=== PATIENT | male | born 1945 | race Caucasian/White ===

== ENCOUNTER 2016-09-01 07:18 | Day surgery (SDC) | payer MEDICARE, BC ==
--- NOTE | 2016-08-14 11:08 | Physician Courtesy Letter ---
DATE: 08/11/2016 Dear Ligia, I saw Mr. Rodriguez in the office on 08/11/2016 in regard to his abdominal pain. He states that he has had a 3- to 4-month history of ongoing right subcostal postprandial pain. He does have fatty food intolerance with this. He did have an ultrasound dated 07/21/2016 which did show no gallstones; however, he did have some gallbladder wall thickening. He states he thinks the discomfort is getting worse. PAST MEDICAL HISTORY: Significant for renal cell cancer, hypertension, hypercholesterolemia, diverticulosis, chronic back pain, chronic abdominal pain. PAST SURGICAL HISTORY: Cryoablation of kidney mass. Pain pump insertion. Vasectomy. CURRENT MEDICATIONS: 1. Cardizem. 2. Flomax. 3. Hyzaar. 4. Hydrocodone. ALLERGIES: AUGMENTIN. SOCIAL HISTORY: He denies any tobacco or alcohol usage. PHYSICAL EXAMINATION: VITAL SIGNS: Height 5 feet 10 inches, weight 230 pounds. He is afebrile. Vital signs are stable. HEART: Regular. LUNGS: Clear. ABDOMEN: Soft. He does have an incarcerated umbilical hernia noted. He does have some pain with deep palpation of his abdomen. I did review his ultrasound. IMPRESSION: Abdominal pain secondary to chronic cholecystitis. PLAN: We did discuss cholecystectomy versus medical management. He desires surgical intervention. Risks include but are not limited to bleeding, infection, duct injury, possible conversion to open, postoperative bile leak, chronic pain, nonresolution of his pain. He understands this fully. He will certainly have some pain control issues afterwards due to his high narcotic use, and this is discussed as well. As always, thank you for this kind referral. Please do not hesitate to contact me if I can be of further assistance. SHANTHI
--- NOTE | 2016-08-14 14:30 | History and Physical Report ---
DATE: 08/11/2016 I saw Mr. Rodriguez in the office on 08/11/2016 in regard to his abdominal pain. He states that he has had a 3- to 4-month history of ongoing right subcostal postprandial pain. He does have fatty food intolerance with this. He did have an ultrasound dated 07/21/2016 which did show no gallstones; however, he did have some gallbladder wall thickening. He states he thinks the discomfort is getting worse. PAST MEDICAL HISTORY: Significant for renal cell cancer, hypertension, hypercholesterolemia, diverticulosis, chronic back pain, chronic abdominal pain. PAST SURGICAL HISTORY: Cryoablation of kidney mass. Pain pump insertion. Vasectomy. CURRENT MEDICATIONS: 1. Cardizem. 2. Flomax. 3. Hyzaar. 4. Hydrocodone. ALLERGIES: AUGMENTIN. SOCIAL HISTORY: He denies any tobacco or alcohol usage. PHYSICAL EXAMINATION: VITAL SIGNS: Height 5 feet 10 inches, weight 230 pounds. He is afebrile. Vital signs are stable. HEART: Regular. LUNGS: Clear. ABDOMEN: Soft. He does have an incarcerated umbilical hernia noted. He does have some pain with deep palpation of his abdomen. I did review his ultrasound. IMPRESSION: Abdominal pain secondary to chronic cholecystitis. PLAN: We did discuss cholecystectomy versus medical management. He desires surgical intervention. Risks include but are not limited to bleeding, infection , duct injury, possible conversion to open, postoperative bile leak, chronic pain, nonresolution of his pain. He understands this fully. He will certainly have some pain control issues afterwards due to his high narcotic use, and this is discussed as well. JOB NUMBER: [[id number]] MTDD
[~2016-09-01 07:18] MED LIST: ACETAMINOPHEN 1000MG/100 ML PREMIX IV ONE; CLINDAMYCIN 600MG/50ML PREMIX 50 ML IVPB ONE; FAMOTIDINE 20MG TABLET PO ONE; MECLIZINE 25 MG TABLET PO ONE; METOCLOPRAMIDE 10 MG TABLET PO ONE
[2016-09-01 07:52] LABS: BASO % 0.4 % (0-6); EOS % 2.4 % (0-6); GRAN % 51.4 % (47-80); HEMATOCRIT 46.5 % (42.0-52.0); LYMPH % 38.9 % (16-45); MEAN CELL VOLUME 85.3 fl (81-97); MEAN CORPUSCULAR HEMOGLOBIN 27.5 pg (27-33); MEAN CORPUSCULAR HGB CONC 32.3 g/dl (32-36); MEAN PLATELET VOLUME 10.9 fl (7.4-10.4); MONO % 6.9 % (0-9); PLATELET COUNT 250 K/uL (130-400); RED BLOOD COUNT 5.45 M/uL (4.40-5.70); RED CELL DISTRIBUTION WIDTH 15.1 % (11.5-14.5); WHITE BLOOD COUNT W/O DIFF 9.2 K/uL (4.2-12.2)
[2016-09-01 08:07] LABS: BLOOD UREA NITROGEN 25 mg/dL (9-20)
[2016-09-01 08:15] LABS: GLUCOSE,RANDOM 107 mg/dL (70-110)
[2016-09-01 08:25] LABS: ANION GAP 10.4 (7-16); CARBON DIOXIDE 23.6 mmol/L (22-30); CREATININE 1.2 mg/dL (0.66-1.25); EST GLOMERULAR FILTRATION RATE > 60 ml/min
[2016-09-01] MEDS ORDERED: NEOSTIGMINE 1 MG/1 ML,10ML VIAL IV ONE (12:54)
[2016-09-01] MEDS ORDERED: PROPOFOL 10 MG/ML VIAL IV ONE (12:54)
[2016-09-01] MEDS ORDERED: ROCURONIUM BROMIDE 50MG/5ML VIAL IV ONE (12:54)
[2016-09-01] MEDS ORDERED: LIDOCAINE 2% MDV (20MG/ML) 20ML VIAL IV ONE (12:54)
[2016-09-01] MEDS ORDERED: GLYCOPYRROLATE 0.2 MG/ML ML IV ONE (12:54)
[2016-09-01] MEDS ORDERED: SUCCINYLCHOLINE 20 MG/ML 10ML IVP ONE (12:54)
[2016-09-01] MEDS ORDERED: ONDANSETRON HCL IV 4 MG/2 ML VIAL IVP ONE (12:54)
[2016-09-01] MEDS ORDERED: MIDAZOLAM HCL 2MG/2ML VIAL IV ONE (12:54)
[2016-09-01] MEDS ORDERED: DEXAMETHASONE 4 MG/ML 1ML VIAL IVP ONE (12:54)
[2016-09-01] MEDS ORDERED: DESFLURANE 240 ML BTL INH ONE (12:54)
[2016-09-01] MEDS ORDERED: FENTANYL PF 100MCG/2ML VIAL IV ONE (12:54)
[2016-09-01] MEDS ORDERED: BUPIVACAINE 0.25% W/EPI MPF 30ML VIAL IVP ONE (13:00)
[2016-09-01] MEDS ORDERED: HYDROCODONE/APAP 5/325MG TABLET PO ONE (13:00)
[2016-09-01] MEDS ORDERED: HYDROMORPHONE HCL 2 MG/ML VIAL IV ONE (13:00)
--- NOTE | 2016-09-03 09:08 | Operative Note ---
DATE OF SURGERY: 09/01/2016 SURGEON: Amador Brand DO REFERRING PHYSICIAN: MARISEL De León PREOPERATIVE DIAGNOSES: 1. Cholelithiasis and chronic cholecystitis. 2. Incarcerated umbilical hernia. POSTOPERATIVE DIAGNOSES: 1. Cholelithiasis and chronic cholecystitis. 2. Incarcerated umbilical hernia. OPERATION: 1. Laparoscopic cholecystectomy. 2. Open umbilical hernia with mesh. Anesthesia: General. Indication: The patient is a 71-year-old male who has had ongoing right subcostal post prandial pain. Imaging studies did reveal cholelithiasis with a thickened gallbladder wall. He also had an incarcerated hernia on exam. We did discuss cholecystectomy versus medical management. He desired surgical intervention. The risks include, but not limited to, bleeding, infection, ductal injury, possible conversion to open, postoperative bile leak, and he understood this fully. Therefore, consent was signed, questions were answered. PROCEDURE: He was taken to the operating room and placed in the supine position. General anesthesia was administered per the Department of Anesthesia. The patient's abdomen was shaved of hair and prepped and draped in the usual fashion. At this time, adequate time-out was performed. He did receive a preoperative antibiotic. At this time, a curvilinear infraumbilical incision was made. This was carried down to the anterior rectus fascia. The umbilical stalk was encircled and dissected free from the underlying hernia sac. Clean circumferential fascial edges were obtained. At this time, stay sutures of 0 Vicryl placed. The hernia sac was amputated and the 10 mm blunt Dionicio port was then placed. At this time, adequate pneumoperitoneum was established. Under direct visualization an additional 5 mm epigastric and 2 5 mm right subcostal ports are placed. The patient was rotated into steep reverse Trendelenburg rotation to the left. At this time, a general exam was done. The patient had dense omental adhesions, both to the liver and to the gallbladder. These were taken down with the Carlos Harmonic. Further cephalad and lateral retraction of the gallbladder did open up the angle of Calot. The hepatocystic triangle was thoroughly dissected out. There was no aberrant anatomy and no posterior ductal structures. Only 2 structures remained; the cystic duct and cystic artery. The distal half of the gallbladder was loosened from the cystic plate, aiding in our exposure. The cystic artery was taken down with the Carlos Harmonic. The cystic duct was triply clipped and cut in the same fashion. The gallbladder was then taken off the liver bed with the Carlos Harmonic. About [address] the gallbladder there appeared to be a clear encountered. This was clipped and sealed off with the Enseal. Once the gallbladder was removed, it was placed in the EndoCatch bag and brought out infraumbilically. Leaving the pneumoperitoneum in place, a 6.4 cm Ventralight mesh was obtained. This was placed and intraperitoneally positioned under direct guidance from the laparoscope. Once this was in adequate position, pneumoperitoneum was released and all ports removed. The mesh sutured in with 2-0 Vicryl. The umbilical skin was then tacked back down. All skin incisions were closed with 4-0 Vicryl. He was taken to the recovery room in satisfactory condition. FINDINGS AT THE TIME OF SURGERY: Chronic cholecystitis and incarcerated umbilical hernia, repaired as above. GLORIAD
== END 2016-09-01 12:09 | disposition home or self-care (01) ==
LOC: SUR 07:18
PROVIDERS: ATTEND Surgery
DX: K80.10 Calculus of gallbladder with chronic cholecystitis without obstruction (principal); K42.9 Umbilical hernia without obstruction or gangrene; I10 Essential (primary) hypertension; E78.00 Pure hypercholesterolemia, unspecified
CPT/HCPCS: 47562; 49587; 00790; 85025; 80048; 88302; 88304; 93005; 93010; J2405; J3010; J1170; J0330; J2710

== ENCOUNTER 2016-09-26 15:39 | Emergency (ER) | payer MEDICARE, BC ==
[2016-09-26 16:00] LABS: URINE APPEARANCE CLEAR; URINE BILIRUBIN NEGATIVE (NEGATIVE); URINE BLOOD LARGE (NEGATIVE); URINE COLOR YELLOW; URINE GLUCOSE (UA) NEGATIVE (NEGATIVE); URINE KETONE NEGATIVE (NEGATIVE); URINE LEUKOCYTE ESTERASE SMALL (NEGATIVE); URINE NITRITE POSITIVE (NEGATIVE); URINE PROTEIN NEGATIVE (NEGATIVE); URINE UROBILINOGEN 0.2 E.U./dL (0.20 - 1.00)
[2016-09-26 16:09] LABS: URINE EPITHELIAL CELLS NONE SEEN (FEW); URINE RBC 21 - 35 (NONE SEEN); URINE WBC 36 - 50 (0-2/hpf)
[2016-09-26 16:10] LABS: URINE BACTERIA 1+
--- NOTE | 2016-09-26 16:17 | Emergency Department Record ---
History of Present Illness - General Chief complaint: Male Urogenital Problem Stated complaint: BURING WITH URINATION Time Seen by Provider: 09/26/16 16:06 Source: Patient Mode of Arrival: Ambulatory Limitations: No limitations - History of Present Illness Initial comments: 71 yo male presents to ED with a CC of burining with urination that began last night. Patient reports undergoing recent prostate biopsy with Dr. Alfonso, completed a 3-day course of Macrobid following the procedure. Patient denies fevers, chills, abdominal or flank pain symptoms. Patient denies history of kidney stones as well. MD Complaint: Dysuria Onset/Timin -: Days(s) Severity: Moderate Severity scale (1-10): 8 Quality: Aching Consistency: Intermittent Improves with: None Worsens with: None Recent surgery Reports: Denies other symptoms - Related Data Sexually active: No Home Medications Medication Instructions Recorded Confirmed Last Taken Hydrocodone/Acetaminophen 1 tab PO Q6H PRN 10/03/13 09/26/16 1 Day Ago [Hydrocodon-Acetaminophn 10-325] ~09/25/16 Ascorbate Calcium/Bioflavonoid 1 each PO DAILY tab 10/19/15 09/26/16 1 Day Ago [Luana-C 1,000 Mg Tablet] ~09/25/16 Previous Rx's Medication Instructions Recorded Ciprofloxacin HCl [Cipro] 500 mg PO Q12HR #14 tablet 09/26/16 Allergies Allergy/AdvReac Type Severity Reaction Status Date / Time amoxicillin trihydrate Allergy Mild VOMITING Verified 09/26/16 15:49 [From Augmentin] potassium clavulanate Allergy Mild VOMITING Verified 09/26/16 15:49 [From Augmentin] Travel Screening - Travel/Exposure Within Last 30 Days Have you traveled within the last 30 days?: No - Travel/Exposure Within Last Year Have you traveled outside the [place] in the last year?: No - Additonal Travel Details Have you been exposed to anyone with a communicable illness?: No - Travel Symptoms Symptom Screening: None Review of Systems Constitutional: Denies: Chills, Fever, Malaise, Night sweats Eyes: Denies: Eye discharge, Eye pain ENT: Denies: Congestion, Ear pain, Epistaxis Respiratory: Denies: Cough, Dyspnea Cardiovascular: Denies: Chest pain, Dyspnea on exertion Endocrine: Denies: Fatigue, Heat or cold intolerance Gastrointestinal: Denies: Abdominal pain, Nausea, Vomiting Genitourinary: Reports: Dysuria. Denies: Hematuria, Incontinence, Retention Musculoskeletal: Denies: Arthralgia, Back pain, Gout, Joint swelling Skin: Denies: Bruising, Change in color Neurological: Denies: Abnormal gait, Confusion, Headache, Seizure Psychiatric: Denies: Anxiety Hematological/Lymphatic: Denies: Anemia, Blood Clots Past Medical History - SOCIAL HISTORY Smoking Status: Former smoker Alcohol Use: None Drug Use: None - RESPIRATORY Hx Respiratory Disorders: No Hx Bronchitis: Yes (last couple months ago-90% better) Hx Pneumonia: Yes (1969) Hx Sleep Apnea: Yes Hx of CPAP: Yes ("I took it back") - CARDIOVASCULAR Hx Cardio Disorders: Yes Hx Hypertension: Yes - NEURO Hx Neuro Disorders: No Hx Headaches: Yes (in morning) - GI Hx GI Disorders: Yes Hx Abdominal Pain: Yes (chronic cholecystitis) Hx Diverticulitis: Yes (bentyl helps) Hx Reflux: Yes Hx Hiatal Hernia: Yes (yrs ago "I was told") Hx Nausea/Vomiting: Yes (just with augmentin rx) Hx of Polyps: Yes (colon) - Hx Genitourinary Disorders: Yes Hx Bladder Problem: Yes Hx Prostate Problems: Yes (PSA up for 4-5 yrs-to see Dr Faye) Hx Renal Disease: Yes (left kidney cryoablation 2012) Comment:: recent [place] "benign fatty mass" kidney - ENDOCRINE Hx Endocrine Disorders: No - MUSCULOSKELETAL Hx Musculoskeletal Disorders: Yes Hx Back Injury: Yes - PSYCH Hx Psych Problems: No - HEMATOLOGY/ONCOLOGY Hx Hematology/Oncology Disorders: Yes Hx Cancer: Yes Family Medical History Any Significant Family History?: Yes Hx Cancer: Father, Mother Hx HTN: Mother Hx Liver Disease: Father Physical Exam - General General Appearance: Alert, Oriented x3, Cooperative, No acute distress Limitations: No limitations - Head Head exam: Atraumatic, Normocephalic, Normal inspection Head exam detail: negative: Abrasion, Contusion, Sweeney's sign, General tenderness, Hematoma, Laceration - Eye Eye exam: Normal appearance. negative: Conjunctival injection, Periorbital swelling, Periorbital tenderness, Scleral icterus - ENT Ear exam: negative: Auricular hematoma, Auricular trauma Nasal Exam: negative: Active bleeding, Discharge, Dried blood, Foreign body Mouth exam: negative: Drooling, Laceration, Muffled voice, Tongue elevation - Neck Neck exam: Normal inspection. negative: Meningismus, Tenderness - Respiratory Respiratory exam: Normal lung sounds bilaterally. negative: Rales, Respiratory distress, Rhonchi, Stridor - Cardiovascular Cardiovascular Exam: Regular rate, Normal rhythm, Normal heart sounds - GI/Abdominal GI/Abdominal exam: Soft. negative: Rebound, Rigid, Tenderness - Rectal Rectal exam: Deferred - exam: Deferred - Extremities Extremities exam: Normal inspection. negative: Calf tenderness, Pedal edema, Tenderness - Back Back exam: Denies: CVA tenderness (R), CVA tenderness (L) - Neurological Neurological exam: Alert, Normal gait, Oriented X3 - Psychiatric Psychiatric exam: Normal affect, Normal mood - Skin Skin exam: Normal color. negative: Abrasion Type of lesion: negative: abrasion Course Vital Signs 09/26/16 15:43 Temperature 97.9 F Pulse Rate 79 Respiratory 18 Rate Blood Pressure 144/71 Pulse Ox 97 - Reevaluation(s) Reevaluation #1: 09/26/16 16:13 Labs reviewed, UA demonstrates 21-35 RBCs, 36-50 WBCs, and 1+ bacteria. No epithelial cells are seen. Will initiate treatment with Cipro with instructions to follow-up with Dr. Alfonso in 3-5 days, return to ED for any fevers, flank pain, or worsening of his symptoms. Medical Decision Making - Lab Data Lab Results 09/26/16 Range/Units 15:55 Urine Color Yellow Urine Appearance Clear Urine pH 5.5 (5.0-8.0) Ur Specific Marion 1.020 (1.002-1.030) Urine Protein Negative (NEGATIVE) Urine Glucose (UA) Negative (NEGATIVE) Urine Ketones Negative (NEGATIVE) Urine Blood Large H (NEGATIVE) Urine Nitrite Positive H (NEGATIVE) Urine Bilirubin Negative (NEGATIVE) Urine Urobilinogen 0.2 (0.20 - 1.00) E.U./dL Ur Leukocyte Esterase Small H (NEGATIVE) Urine RBC 21 - 35 (NONE SEEN) Urine WBC 36 - 50 (0-2/hpf) Ur Epithelial Cells None seen (FEW) Urine Bacteria 1+ Disposition Disposition: Discharge Clinical Impression: UTI (urinary tract infection) Qualifiers: Urinary tract infection type: acute cystitis Hematuria presence: with hematuria Qualified Code(s): N30.01 - Acute cystitis with hematuria Disposition: Home, Self-Care Condition: (2) Stable Instructions: Urinary Tract Infection in Men (ED) Additional Instructions: Return to ED if your symptoms worsen or if you have any concerns. Cipro as directed. Follow-up with Dr. Alfonso in 3-5 days as directed. Prescriptions: Ciprofloxacin HCl [Cipro] 500 mg PO Q12HR #14 tablet Forms: Patient Portal Access Time of Disposition: 16:17
== END 2016-09-26 16:26 | disposition home or self-care (01) ==
LOC: ER 15:39
DX: N30.01 Acute cystitis with hematuria (principal)
CPT/HCPCS: 81001; 99283

== ENCOUNTER 2016-09-27 05:37 | Emergency (ER) | payer MEDICARE, BC ==
--- NOTE | 2016-09-27 05:52 | Emergency Department Record ---
History of Present Illness - General Chief Complaint: Palpitations Stated Complaint: Palpitations Time Seen by Provider: 09/27/16 05:48 Source: Patient Mode of Arrival: Ambulatory Limitations: No limitations - History of Present Illness Initial Comments: The patient is here due to waking up at 3am today with his heart racing and also having mild SOB. He denies any Cp, back pain, cough or fever. The patient was in the ER yesterday for dysuria and was started on Cipro. He has no hx of similar issues or any hx of Afib. The patient also denies any hx of any cardiac issues. MD Complaint: "Heart racing", Palpitations Onset/Timin -: Hour(s) Context: Awoke with symptoms Associated Symptoms: Cough, Shortness of breath - Related Data Home Medications Medication Instructions Recorded Confirmed Last Taken Hydrocodone/Acetaminophen 1 tab PO Q6H PRN 10/03/13 09/27/16 09/26/16 [Hydrocodon-Acetaminophn 10-325] Ascorbate Calcium/Bioflavonoid 1 each PO DAILY tab 10/19/15 09/27/16 09/26/16 [Luana-C 1,000 Mg Tablet] Previous Rx's Medication Instructions Recorded Ciprofloxacin HCl [Cipro] 500 mg PO Q12HR #14 tablet 09/26/16 Allergies Allergy/AdvReac Type Severity Reaction Status Date / Time amoxicillin trihydrate Allergy Mild VOMITING Verified 09/26/16 15:49 [From Augmentin] potassium clavulanate Allergy Mild VOMITING Verified 09/26/16 15:49 [From Augmentin] Travel Screening - Travel/Exposure Within Last 30 Days Have you traveled within the last 30 days?: No - Travel Symptoms Symptom Screening: None Review of Systems Constitutional: Denies: Chills, Fever, Other ENT: Denies: Congestion Respiratory: Denies: Cough, Dyspnea Past Medical History - SOCIAL HISTORY Smoking Status: Former smoker - RESPIRATORY Hx Respiratory Disorders: No Hx Bronchitis: Yes (last couple months ago-90% better) Hx Pneumonia: Yes (1969) Hx Sleep Apnea: Yes Hx of CPAP: Yes ("I took it back") - CARDIOVASCULAR Hx Cardio Disorders: Yes Hx Hypertension: Yes - NEURO Hx Neuro Disorders: No Hx Headaches: Yes (in morning) - GI Hx GI Disorders: Yes Hx Abdominal Pain: Yes (chronic cholecystitis) Hx Diverticulitis: Yes (bentyl helps) Hx Reflux: Yes Hx Hiatal Hernia: Yes (yrs ago "I was told") Hx Nausea/Vomiting: Yes (just with augmentin rx) Hx of Polyps: Yes (colon) - Hx Genitourinary Disorders: Yes Hx Bladder Problem: Yes Hx Prostate Problems: Yes (PSA up for 4-5 yrs-to see Dr Faye) Hx Renal Disease: Yes (left kidney cryoablation 2012) Comment:: recent [place] "benign fatty mass" kidney - ENDOCRINE Hx Endocrine Disorders: No - MUSCULOSKELETAL Hx Musculoskeletal Disorders: Yes Hx Back Injury: Yes - PSYCH Hx Psych Problems: No - HEMATOLOGY/ONCOLOGY Hx Hematology/Oncology Disorders: Yes Hx Cancer: Yes Family Medical History Any Significant Family History?: Yes Hx Cancer: Father, Mother Hx HTN: Mother Hx Liver Disease: Father Physical Exam - General General Appearance: Alert, Oriented x3, Cooperative, No acute distress - Head Head exam: Atraumatic, Normocephalic, Normal inspection - Eye Eye exam: Normal appearance, PERRL - Neck Neck exam: Normal inspection, Full ROM. negative: Tenderness - Respiratory Respiratory exam: Normal lung sounds bilaterally. negative: Respiratory distress - Cardiovascular Cardiovascular Exam: Irregular rhythm. negative: Regular rate, Normal rhythm - GI/Abdominal GI/Abdominal exam: Soft, Normal bowel sounds. negative: Tenderness - Extremities Extremities exam: Normal inspection, Full ROM, Normal capillary refill. negative: Tenderness - Neurological Neurological exam: Normal gait. negative: Abnormal gait, Motor sensory deficit - Skin Skin exam: negative: Rash Course Vital Signs 09/27/16 05:40 Temperature 97.6 F Pulse Rate 141 H Respiratory 22 Rate Blood Pressure 135/92 Pulse Ox 95 - Reevaluation(s) Reevaluation #1: The patient is doing very well at this time. He denies any pain or discomfort or any significant SOB. The patient is speaking in full sentences with no difficulty. His HR is still slightly fast so we will try some IV Lopressor. 09/27/16 06:29 Reevaluation #2: The patient is doing well. He denies any CP or SOB. His HR is still a little fast with a stable BP so we will increase his Cardizem to 15mg/hr. I did discuss the issues with the patient and did recommend being transferred to a larger hospital. [facility] I then did discuss the case with DR[facility] Walden in the ER [facility] and he accepts the patient in an ER to ER transfer. 09/27/16 06:50 09/27/16 06:55 Reevaluation #3: The patient is doing well. He denies any pain or discomfort. His HR is bouncing from 110-150 but with a stable BP. 09/27/16 07:02 Reevaluation #4: The patient is doing very well at this time. He did just convert to NSR. Due to that fact I do believe it is OK to keep the patient here at [facility]. I did discuss the case with Beverly (MARISEL) and she agrees with the plan. 09/27/16 07:11 Reevaluation #5: @nd EKG: NSR at 100 with PVC's. 09/27/16 07:19 Medical Decision Making - Data Complexity MDM Data: EKG Ordered and/or Reviewed - Lab Data Result diagrams: 09/27/16 05:45 09/27/16 05:44 - EKG Data -: EKG Interpreted by Me (Rapid A fib at 170.) Disposition Disposition: Admit Clinical Impression: New onset a-fib Disposition: Still a Patient at [facility] Decision to Admit: Admit from ER Decision to Admit Date: 09/27/16 Decision to Admit Time: 07:13 Reason For Transfer: New Onset Afib Time Discussed w/Accepting Physician: 07:13 Condition: (2) Stable Forms: Patient Portal Access Time of Disposition: 07:13
[2016-09-27] MEDS ORDERED: DILTIAZEM 25MG/5ML VIAL IV ONE ×2 (05:57→08:20)
[2016-09-27] MEDS ORDERED: DILTIAZEM HCL 125 MG in 0.9 % SODIUM CHLORIDE 100ML 100 ML IV SCH ×2 (06:00→07:30)
[2016-09-27 06:12] LABS: BASO % 0.2 % (0-6); EOS % 0.5 % (0-6); GRAN % 71.6 % (47-80); HEMATOCRIT 46.9 % (42.0-52.0); HEMOGLOBIN 15.2 gm/dl (14.0-18.0); LYMPH % 18.5 % (16-45); MEAN CELL VOLUME 85.7 fl (81-97); MEAN CORPUSCULAR HEMOGLOBIN 27.8 pg (27-33); MEAN CORPUSCULAR HGB CONC 32.4 g/dl (32-36); MEAN PLATELET VOLUME 11.2 fl (7.4-10.4); MONO % 9.2 % (0-9); PLATELET COUNT 277 K/uL (130-400); RED BLOOD COUNT 5.47 M/uL (4.40-5.70); RED CELL DISTRIBUTION WIDTH 14.6 % (11.5-14.5); WHITE BLOOD COUNT W/O DIFF 15.7 K/uL (4.2-12.2)
[2016-09-27] MEDS ORDERED: METOPROLOL TART 5 MG/5 ML VIAL IV ONE (06:14)
[2016-09-27 06:23] LABS: ALB/GLOB RATIO 1.6 (1.1-1.8); ALBUMIN 4.4 gm/dL (3.5-5.0); ALKALINE PHOSPHATASE 113 U/L (38-126); ALT/SGPT 28 U/L (21-72); ANION GAP 11.9 (7-16); AST/SGOT 21 U/L (17-59); BILIRUBIN,TOTAL 0.45 mg/dL (0.2-1.3); BLOOD UREA NITROGEN 17 mg/dL (9-20); CARBON DIOXIDE 26.1 mmol/L (22-30); CREATININE 1.3 mg/dL (0.66-1.25); EST GLOMERULAR FILTRATION RATE 58 ml/min; GLUCOSE,RANDOM 181 mg/dL (70-110); TOTAL PROTEIN 7.2 gm/dL (6.3-8.2)
[2016-09-27 06:34] LABS: CKMB 0.6 ug/L (0-6)
[2016-09-27 06:38] LABS: TROPONIN I < 0.012 ng/mL (0.00-0.034)
[2016-09-27] MEDS ORDERED: POTASSIUM CHLORIDE 20 MEQ TABLET PO ONE (06:39)
[2016-09-27] MEDS ORDERED: HEPARIN SODIUM 1000 UNIT/1 ML 10ML VIAL IVP ONE (06:45)
[2016-09-27] MEDS ORDERED: HEPARIN SODIUM/D5W 25,000 UNITS/500 ML BAG IV SCH (06:45)
[2016-09-27 07:01] LABS: INR 1.1; PARTIAL THROMBOPLASTIN TIME 26.9 SECONDS (24.5-39.1); PROTHROMBIN TIME (PATIENT) 12.4 SECONDS (9.5-12.1)
[2016-09-27] MEDS ORDERED: ACETAMINOPHEN 500 MG TABLET PO PRN (07:20)
[2016-09-27] MEDS ORDERED: 0.9 % SODIUM CHLORIDE 1000ML 1,000 ML IV PRN (07:20)
[2016-09-27] MEDS ORDERED: HYDROCODONE/APAP 10/325 TABLET PO PRN (07:21)
--- NOTE | 2016-09-27 08:15 | Emergency Department Record ---
History of Present Illness - General Chief Complaint: Palpitations Stated Complaint: Palpitations Time Seen by Provider: 09/27/16 05:48 Source: Patient Mode of Arrival: Ambulatory Limitations: No limitations - History of Present Illness MD Complaint: "Heart racing", Palpitations Onset/Timin -: Hour(s) Context: Awoke with symptoms Associated Symptoms: Cough, Shortness of breath - Related Data Home Medications Medication Instructions Recorded Confirmed Last Taken Hydrocodone/Acetaminophen 1 tab PO Q6H PRN 10/03/13 09/27/16 09/26/16 [Hydrocodon-Acetaminophn 10-325] Ascorbate Calcium/Bioflavonoid 1 each PO DAILY tab 10/19/15 09/27/16 09/26/16 [Luana-C 1,000 Mg Tablet] Previous Rx's Medication Instructions Recorded Ciprofloxacin HCl [Cipro] 500 mg PO Q12HR #14 tablet 09/26/16 Allergies Allergy/AdvReac Type Severity Reaction Status Date / Time amoxicillin trihydrate Allergy Mild VOMITING Verified 09/26/16 15:49 [From Augmentin] potassium clavulanate Allergy Mild VOMITING Verified 09/26/16 15:49 [From Augmentin] Travel Screening - Travel/Exposure Within Last 30 Days Have you traveled within the last 30 days?: No - Travel Symptoms Symptom Screening: None Review of Systems Constitutional: Denies: Chills, Fever, Other ENT: Denies: Congestion Respiratory: Denies: Cough, Dyspnea Past Medical History - SOCIAL HISTORY Smoking Status: Former smoker - RESPIRATORY Hx Respiratory Disorders: No Hx Bronchitis: Yes (last couple months ago-90% better) Hx Pneumonia: Yes (1969) Hx Sleep Apnea: Yes Hx of CPAP: Yes ("I took it back") - CARDIOVASCULAR Hx Cardio Disorders: Yes Hx Hypertension: Yes - NEURO Hx Neuro Disorders: No Hx Headaches: Yes (in morning) - GI Hx GI Disorders: Yes Hx Abdominal Pain: Yes (chronic cholecystitis) Hx Diverticulitis: Yes (bentyl helps) Hx Reflux: Yes Hx Hiatal Hernia: Yes (yrs ago "I was told") Hx Nausea/Vomiting: Yes (just with augmentin rx) Hx of Polyps: Yes (colon) - Hx Genitourinary Disorders: Yes Hx Bladder Problem: Yes Hx Prostate Problems: Yes (PSA up for 4-5 yrs-to see Dr Faye) Hx Renal Disease: Yes (left kidney cryoablation 2012) Comment:: recent [place] "benign fatty mass" kidney - ENDOCRINE Hx Endocrine Disorders: No - MUSCULOSKELETAL Hx Musculoskeletal Disorders: Yes Hx Back Injury: Yes - PSYCH Hx Psych Problems: No - HEMATOLOGY/ONCOLOGY Hx Hematology/Oncology Disorders: Yes Hx Cancer: Yes Family Medical History Any Significant Family History?: Yes Hx Cancer: Father, Mother Hx HTN: Mother Hx Liver Disease: Father Physical Exam - General Limitations: No limitations Course Vital Signs 09/27/16 09/27/16 09/27/16 05:40 06:03 06:10 Temperature 97.6 F Pulse Rate 141 H Pulse Rate [ 171 H 157 H Flare Breaker ] Respiratory 22 20 20 Rate Blood Pressure 135/92 Blood Pressure 133/93 119/92 [Right Arm] Pulse Ox 95 93 L 93 L 09/27/16 09/27/16 09/27/16 06:32 07:01 07:16 Temperature Pulse Rate Pulse Rate [ 113 H 138 H 76 Flare Breaker ] Respiratory 20 20 20 Rate Blood Pressure Blood Pressure 129/93 112/91 135/84 [Right Arm] Pulse Ox 97 97 09/27/16 07:56 Temperature Pulse Rate Pulse Rate [ 158 H Flare Breaker ] Respiratory 18 Rate Blood Pressure Blood Pressure 120/70 [Right Arm] Pulse Ox - Reevaluation(s) Reevaluation #1: 09/27/16 08:12 pt went back into afib at a rate of 160 so transfer was again initiated. d/w dr patel Medical Decision Making - Lab Data Result diagrams: 09/27/16 05:45 09/27/16 05:44 Lab Results 09/27/16 09/27/16 09/27/16 Range/Units 05:44 05:44 05:45 WBC 15.7 H (4.2-12.2) K/uL RBC 5.47 (4.40-5.70) M/uL Hgb 15.2 (14.0-18.0) gm/dl Hct 46.9 (42.0-52.0) % MCV 85.7 (81-97) fl MCH 27.8 (27-33) pg MCHC 32.4 (32-36) g/dl RDW 14.6 H (11.5-14.5) % Plt Count 277 (130-400) K/uL MPV 11.2 H (7.4-10.4) fl Gran % 71.6 (47-80) % Lymphocytes % 18.5 (16-45) % Monocytes % 9.2 H (0-9) % Eosinophils % 0.5 (0-6) % Basophils % 0.2 (0-6) % PT (9.5-12.1) SECONDS INR APTT (24.5-39.1) SECONDS Sodium 139 (136-145) mmol/L Potassium 3.4 L (3.5-5.1) mmol/L Chloride 101 (98-107) mmol/L Carbon Dioxide 26.1 (22-30) mmol/L Anion Gap 11.9 (7-16) BUN 17 (9-20) mg/dL Creatinine 1.3 H (0.66-1.25) mg/dL Estimated GFR 58 ml/min Random Glucose 181 H (70-110) mg/dL Calcium 9.7 (8.5-10.1) mg/dL Total Bilirubin 0.45 (0.2-1.3) mg/dL AST 21 (17-59) U/L ALT 28 (21-72) U/L Alkaline Phosphatase 113 (38-126) U/L Creatine Kinase 46 L (55-170) U/L CK-MB (CK-2) 0.6 (0-6) ug/L Troponin I < 0.012 (0.00-0.034) ng/mL Total Protein 7.2 (6.3-8.2) gm/dL Albumin 4.4 (3.5-5.0) gm/dL Globulin 2.8 (1.4-4.8) gm/dL Albumin/Globulin Ratio 1.6 (1.1-1.8) /11/08 Range/Units 05:45 WBC (4.2-12.2) K/uL RBC (4.40-5.70) M/uL Hgb (14.0-18.0) gm/dl Hct (42.0-52.0) % MCV (81-97) fl MCH (27-33) pg MCHC (32-36) g/dl RDW (11.5-14.5) % Plt Count (130-400) K/uL MPV (7.4-10.4) fl Gran % (47-80) % Lymphocytes % (16-45) % Monocytes % (0-9) % Eosinophils % (0-6) % Basophils % (0-6) % PT 12.4 H (9.5-12.1) SECONDS INR 1.10 APTT 26.90 (24.5-39.1) SECONDS Sodium (136-145) mmol/L Potassium (3.5-5.1) mmol/L Chloride (98-107) mmol/L Carbon Dioxide (22-30) mmol/L Anion Gap (7-16) BUN (9-20) mg/dL Creatinine (0.66-1.25) mg/dL Estimated GFR ml/min Random Glucose (70-110) mg/dL Calcium (8.5-10.1) mg/dL Total Bilirubin (0.2-1.3) mg/dL AST (17-59) U/L ALT (21-72) U/L Alkaline Phosphatase (38-126) U/L Creatine Kinase (55-170) U/L CK-MB (CK-2) (0-6) ug/L Troponin I (0.00-0.034) ng/mL Total Protein (6.3-8.2) gm/dL Albumin (3.5-5.0) gm/dL Globulin (1.4-4.8) gm/dL Albumin/Globulin Ratio (1.1-1.8) Disposition Clinical Impression: New onset a-fib Disposition: Still a Patient at [facility] Transfer To: [facility] Reason For Transfer: afib Accepting Physician: dr patel Condition: (2) Stable Forms: Patient Portal Access
[2016-09-27] MEDS ORDERED: ASPIRIN 325 MG TAB ENTERIC-COATED PO SCH (10:00)
[2016-09-27] MEDS ORDERED: HYDROCHLOROTHIAZIDE PO SCH (10:00)
[2016-09-27] MEDS ORDERED: LOSARTAN PO SCH (10:00)
[2016-09-27] MEDS ORDERED: TAMSULOSIN HCL 0.4 MG CAP.ER.24H PO SCH (10:00)
[2016-09-27] MEDS ORDERED: CIPROFLOXACIN HCL 500 MG TABLET PO SCH (10:00)
[2016-09-27] MEDS ORDERED: DILTIAZEM HCL 180 MG PO SCH (17:00)
== END 2016-09-27 08:57 | disposition still patient (30) ==
LOC: ER 05:37
DX: I48.91 Unspecified atrial fibrillation (principal); R06.02 Shortness of breath; R05 Cough; I10 Essential (primary) hypertension; Z87.891 Personal history of nicotine dependence
CPT/HCPCS: 80053; 82550; 82553; 84484; 85025; 85610; 85730; 93005; 93010; 93041; 96365; 96366; 96368; 96375; 96376; 99285

== ENCOUNTER 2016-12-09 15:28 | Emergency (ER) | payer MEDICARE, BC ==
[2016-12-09] MEDS ORDERED: 0.9 % SODIUM CHLORIDE 1,000 ML BAG IV ONE ×2 (15:57→17:18)
--- NOTE | 2016-12-09 16:05 | Emergency Department Record ---
History of Present Illness - General Chief Complaint: Abdominal Pain Stated Complaint: ABD PAIN Time Seen by Provider: 12/09/16 15:50 Source: Patient Mode of Arrival: Ambulatory Limitations: No limitations - History of Present Illness Initial Comments: pt had a sudden onset of significant ap which he felt was gas while he was at [facility] seeing dr england. he has no n/v/c/d. the pain is easing now approx an hour after it started. Onset/Timin -: Hour(s) Location: Periumbilical, Suprapubic Severity: Moderate Quality: Aching, Dull Consistency: Constant Improves With: Nothing Worsens With: Nothing - Related Data Home Medications Medication Instructions Recorded Confirmed Last Taken Hydrocodone/Acetaminophen 1 tab PO Q6H PRN 10/03/13 12/09/16 12/09/16 [Hydrocodon-Acetaminophn 10-325] Ascorbate Calcium/Bioflavonoid 1 each PO DAILY tab 10/19/15 12/09/16 12/09/16 [Luana-C 1,000 Mg Tablet] Rivaroxaban [Xarelto] 20 mg PO DAILY tab 10/21/16 12/09/16 12/09/16 Diltiazem HCl [Diltiazem 24hr Er] 360 mg PO QD tab 11/06/16 12/09/16 12/09/16 Allergies Allergy/AdvReac Type Severity Reaction Status Date / Time amoxicillin trihydrate Allergy Mild VOMITING Verified 12/09/16 15:42 [From Augmentin] potassium clavulanate Allergy Mild VOMITING Verified 12/09/16 15:42 [From Augmentin] ciprofloxacin [From Cipro] Allergy rapid Verified 12/09/16 15:42 heartbeat ciprofloxacin HCl Allergy rapid Verified 12/09/16 15:42 [From Cipro] heartbeat Travel Screening - Travel/Exposure Within Last 30 Days Have you traveled within the last 30 days?: No - Travel/Exposure Within Last Year Have you traveled outside the [place] in the last year?: No - Additonal Travel Details Have you been exposed to anyone with a communicable illness?: No - Travel Symptoms Symptom Screening: None Review of Systems Reviewed: No additional complaints except as noted below Constitutional: Reports: As per HPI. Denies: Chills, Fever, Malaise, Night sweats, Weakness, Weight change Eyes: Reports: As per HPI. Denies: Eye discharge, Eye pain, Photophobia, Vision change ENT: Reports: As per HPI. Denies: Congestion, Dental pain, Ear pain, Epistaxis , Hearing loss, Throat pain Respiratory: Reports: As per HPI. Denies: Cough, Dyspnea, Hemoptysis, Stridor, Wheezes Cardiovascular: Reports: As per HPI. Denies: Arrhythmia, Chest pain, Dyspnea on exertion, Edema, Murmurs, Orthopnea, Palpitations, Paroxysmal nocturnal dyspnea, Rheumatic Fever, Syncope Endocrine: Reports: As per HPI. Denies: Fatigue, Heat or cold intolerance, Polydipsia, Polyuria Gastrointestinal: Reports: As per HPI. Denies: Abdominal pain, Constipation, Diarrhea, Hematemesis, Hematochezia, Melena, Nausea, Vomiting Genitourinary: Reports: As per HPI. Denies: Dysuria, Frequency, Hematuria, Incontinence, Retention, Testicular pain, Testicular mass, Urgency Musculoskeletal: Reports: As per HPI. Denies: Arthralgia, Back pain, Gout, Joint swelling, Myalgia, Neck pain Skin: Reports: As per HPI. Denies: Bruising, Change in color, Change in hair/ nails, Lesions, Pruritus, Rash Neurological: Reports: As per HPI. Denies: Abnormal gait, Confusion, Headache, Numbness, Paresthesias, Seizure, Tingling, Tremors, Vertigo, Weakness Psychiatric: Reports: As per HPI. Denies: Anxiety, Auditory hallucinations, Depression, Homicidal thoughts, Suicidal thoughts, Visual hallucinations Hematological/Lymphatic: Reports: As per HPI. Denies: Anemia, Blood Clots, Easy bleeding, Easy bruising, Swollen glands Past Medical History - SOCIAL HISTORY Smoking Status: Former smoker Alcohol Use: None Drug Use: None - RESPIRATORY Hx Respiratory Disorders: No Hx Bronchitis: Yes (last couple months ago-90% better) Hx Pneumonia: Yes (1969) Hx Sleep Apnea: Yes Hx of CPAP: Yes ("I took it back") - CARDIOVASCULAR Hx Cardio Disorders: Yes Hx Hypertension: Yes Hx Irregular Heartbeat: Yes (A fib) - NEURO Hx Neuro Disorders: No Hx Headaches: Yes (in morning) - GI Hx GI Disorders: Yes Hx Abdominal Pain: Yes (chronic cholecystitis) Hx Diverticulitis: Yes (bentyl helps) Hx Reflux: Yes Hx Hiatal Hernia: Yes (yrs ago "I was told") Hx Nausea/Vomiting: Yes (just with augmentin rx) Hx of Polyps: Yes (colon) - Hx Genitourinary Disorders: Yes Hx Bladder Problem: Yes Hx Prostate Problems: Yes (PSA up for 4-5 yrs-to see Dr Faye) Hx Renal Disease: Yes (left kidney cryoablation 2012) Comment:: recent [place] "benign fatty mass" kidney - ENDOCRINE Hx Endocrine Disorders: No - MUSCULOSKELETAL Hx Musculoskeletal Disorders: Yes Hx Back Injury: Yes - PSYCH Hx Psych Problems: No - HEMATOLOGY/ONCOLOGY Hx Hematology/Oncology Disorders: Yes Hx Cancer: Yes Family Medical History Any Significant Family History?: No Hx Cancer: Father, Mother Hx HTN: Mother Hx Liver Disease: Father Physical Exam - General General Appearance: Alert, Oriented x3, Cooperative, Mild distress - Head Head exam: Normal inspection - Eye Eye exam: Normal appearance, PERRL, EOMI Pupils: Normal accommodation - ENT ENT exam: Normal exam, Mucous membranes moist, Normal external ear exam, Normal orophraynx Ear exam: Normal external inspection. negative: External canal tenderness Nasal Exam: Normal inspection. negative: Discharge, Sinus tenderness Mouth exam: Normal external inspection, Tongue normal Teeth exam: Normal inspection. negative: Dental caries Throat exam: Normal inspection. negative: Tonsillar erythema, Tonsillar exudate - Neck Neck exam: Normal inspection, Full ROM. negative: Tenderness - Respiratory Respiratory exam: Normal lung sounds bilaterally. negative: Respiratory distress - Cardiovascular Cardiovascular Exam: Regular rate, Normal rhythm, Normal heart sounds - GI/Abdominal GI/Abdominal exam: Soft, Normal bowel sounds, Tenderness - Rectal Rectal exam: Deferred - exam: Deferred - Extremities Extremities exam: Normal inspection, Full ROM, Normal capillary refill. negative: Tenderness - Back Back exam: Reports: Normal inspection, Full ROM. Denies: Muscle spasm, Rash noted, Tenderness - Neurological Neurological exam: Alert, Normal gait, Oriented X3, Reflexes normal - Psychiatric Psychiatric exam: Normal affect, Normal mood - Skin Skin exam: Dry, Intact, Normal color, Warm Course Vital Signs 12/09/16 15:33 Temperature 97.7 F Pulse Rate 56 L Respiratory 20 Rate Blood Pressure 142/88 Pulse Ox 95 - Reevaluation(s) Reevaluation #1: 12/09/16 17:42 pt feels better. renal fxn d/w shaun who will see pt. Medical Decision Making - Lab Data Result diagrams: 12/09/16 16:08 12/09/16 16:08 Disposition Disposition: Discharge Clinical Impression: Renal insufficiency Abdominal pain Qualifiers: Abdominal location: generalized Qualified Code(s): R10.84 - Generalized abdominal pain Disposition: Home, Self-Care Condition: (1) Good Instructions: Impaired Kidney Function (ED), Acute Abdominal Pain (ED) Additional Instructions: follow up with family doctor. return sooner if worse Forms: Patient Portal Access Quality - Quality Measures Quality Measures: N/A - Blood Pressure Screening Blood Pressure Classification: Pre-Hypertensive BP Reading Systolic Measurement: 142 Diastolic Measurement: 88 Screening for High Blood Pressure: < Pre-Hypertensive BP, F/U Documented > [ [id number]] Pre-Hypertensive Follow-up Interventions: Referral to alternative/primary care provider.
[2016-12-09 16:12] LABS: BASO % 0.3 % (0-6); GRAN % 55.3 % (47-80); HEMATOCRIT 42.9 % (42.0-52.0); HEMOGLOBIN 14.2 gm/dl (14.0-18.0); LYMPH % 34.4 % (16-45); MEAN CELL VOLUME 84.6 fl (81-97); MEAN CORPUSCULAR HGB CONC 33.1 g/dl (32-36); MEAN PLATELET VOLUME 10.5 fl (7.4-10.4); PLATELET COUNT 247 K/uL (130-400); RED BLOOD COUNT 5.07 M/uL (4.40-5.70); WHITE BLOOD COUNT W/O DIFF 10.3 K/uL (4.2-12.2)
[2016-12-09 16:24] LABS: URINE APPEARANCE CLEAR; URINE BILIRUBIN NEGATIVE (NEGATIVE); URINE BLOOD NEGATIVE (NEGATIVE); URINE COLOR YELLOW; URINE GLUCOSE (UA) NEGATIVE (NEGATIVE); URINE KETONE NEGATIVE (NEGATIVE); URINE LEUKOCYTE ESTERASE NEGATIVE (NEGATIVE); URINE NITRITE NEGATIVE (NEGATIVE); URINE PROTEIN NEGATIVE (NEGATIVE); URINE UROBILINOGEN 0.2 E.U./dL (0.20 - 1.00)
[2016-12-09 16:25] LABS: ALBUMIN 4.4 gm/dL (3.5-5.0); ALKALINE PHOSPHATASE 103 U/L (38-126); ALT/SGPT 54 U/L (21-72); ANION GAP 11.6 (7-16); AST/SGOT 50 U/L (17-59); BLOOD UREA NITROGEN 26 mg/dL (9-20); CARBON DIOXIDE 26.4 mmol/L (22-30); CREATININE 1.9 mg/dL (0.66-1.25); EST GLOMERULAR FILTRATION RATE 37 ml/min; GLUCOSE,RANDOM 111 mg/dL (70-110); LIPASE 50 U/L (23-300); TOTAL PROTEIN 7.3 gm/dL (6.3-8.2)
[2016-12-09 16:39] LABS: TROPONIN I < 0.012 ng/mL (0.00-0.034)
--- NOTE | 2016-12-10 08:03 | CT SCAN REPORT ---
EXAM: CT OF THE ABDOMEN AND PELVIS WITHOUT CONTRAST HISTORY: ABDOMINAL PAIN. TECHNIQUE: Sequential axial images were obtained from the diaphragms through the ischiorectal fossa without intravenous or oral contrast administration. Comparison: 03/19/16. FINDINGS: The heart size is at the upper limits of normal. There is mild wall thickening of the distal esophagus. There is a subcentimeter low density lesion in the left lobe of the liver. The gallbladder has been surgically removed. The pancreas and spleen appear normal. The adrenal glands and kidneys appear normal. There are hyperdense cysts in the both kidneys. There is a lipomatous lesion in the left kidney. The urinary bladder appears normal. The small bowel appears normal. There is colonic diverticulosis without definitive evidence of acute diverticulitis. There is atheromatous change of the abdominal vasculature. There is multilevel degenerative change of the lumbar spine. IMPRESSION: 1. CHRONIC DIVERTICULOSIS WITHOUT EVIDENCE OF ACUTE DIVERTICULITIS. 2. HYPERDENSE CYSTS IN BOTH KIDNEYS. LIPOMATOUS LESION IN THE LEFT KIDNEY. 3. EQUIVOCAL MILD WALL THICKENING OF THE DISTAL ESOPHAGUS. 4. SUBCENTIMETER LOW DENSITY LESION IN THE LEFT LOBE OF THE LIVER. JOB NUMBER: [id number] MTDD
== END 2016-12-09 17:56 | disposition home or self-care (01) ==
LOC: ER 15:28
DX: N28.9 Disorder of kidney and ureter, unspecified (principal); R10.84 Generalized abdominal pain; I10 Essential (primary) hypertension; I48.91 Unspecified atrial fibrillation; Z87.891 Personal history of nicotine dependence
CPT/HCPCS: 74176; 80048; 80076; 81003; 83690; 84484; 85025; 93005; 93010; 99284; J7030

== ENCOUNTER 2019-04-28 06:32 | Day surgery (SDC) | payer MEDICARE, BC ==
[2019-04-28] MEDS ORDERED: LIDOCAINE 2% MDV (20MG/ML) 20ML VIAL IV ONE (06:33)
[2019-04-28] MEDS ORDERED: PROPOFOL 10 MG/ML VIAL IV ONE (06:33)
[2019-04-28] MEDS ORDERED: 0.9 % SODIUM CHLORIDE 1000ML 500 ML IV ONE (07:14)
[2019-04-28] MEDS ORDERED: EPINEPHRINE 1 MG/ML AMPUL IO ONE (08:34)
[2019-04-28] MEDS ORDERED: BRIMONIDINE TARTRATE 0.2% OPTHALMIC DROPS OP ONE (08:34)
[2019-04-28] MEDS ORDERED: LIDOCAINE 2% MDV (20MG/ML) 20ML VIAL INJ ONE (08:34)
[2019-04-28] MEDS ORDERED: NEOM/BACI/POLY/HC 3.5 GM OPTH OINT OPTH ONE (08:34)
[2019-04-28] MEDS ORDERED: TIMOLOL MALEATE 0.5% 5ML BTL OPTH ONE (08:34)
[2019-04-28] MEDS ORDERED: TETRACAINE HCL 0.5% OPTH 2ML SOLU OPTH ONE (08:34)
[2019-04-28] MEDS ORDERED: LIDOCAINE 1% MPF 100MG/10ML STERILE-PAK AMPULE SQ ONE (08:46)
--- NOTE | 2019-04-28 13:48 | OP NOTE CHAMES ---
DATE OF PROCEDURE: 04/28/2019 PREOPERATIVE DIAGNOSIS: Nuclear sclerotic cataract, left eye. POSTOPERATIVE DIAGNOSIS: Nuclear sclerotic cataract, left eye. OPERATION: Phacoemulsification of cataractous lens with implantation of intraocular lens. LENS IMPLANT USED: Jakob & Jakob Model PCB00 + 22.0 diopters. COMPLICATIONS: None. PROCEDURE IN DETAIL: Following a retrobulbar and facial block, the patient was prepped and draped in the usual fashion for eye surgery. A lid speculum was placed in the left eye after which a 2.4 mm tunnel wound was placed at the temporal limbus and dissected into clear cornea. A paracentesis was placed at 2 oclock hours to the left and right of the initial incision and the chamber deepened with Viscoelastic. The keratome was then used to enter the anterior chamber after which the continuous circular capsulorrhexis was accomplished without difficulty using a bent needle and a Utrata forceps. Hydrodissection and hydrodelineation of the lens was performed after which the nucleus of the lens was removed using the Phaco handpiece in the [id number] technique. The residual cortical material was irrigated and aspirated from the eye after which the bag and chamber were re-examined. The bag was re-inflated with Viscoelastic and the intraocular lens injected into the capsular bag where it centered well. The Viscoelastic was then copiously irrigated and aspirated from the eye after which the temporal tunnel wound and paracentesis were hydrated and the wounds were examined. They were noted to be watertight. The lid speculum was removed from the eye and the eye patched and shielded. The patient was transferred to the recovery room in satisfactory condition and given an appointment to be reexamined in the clinic later today or as directed by Dr. Julian. JOB NUMBER: [id number] MTDD
== END 2019-04-28 09:20 | disposition home or self-care (01) ==
LOC: SUR 06:32
PROVIDERS: ATTEND Ophthalmology
DX: H25.12 Age-related nuclear cataract, left eye (principal); I10 Essential (primary) hypertension; I48.91 Unspecified atrial fibrillation; Z79.01 Long term (current) use of anticoagulants; N28.9 Disorder of kidney and ureter, unspecified; Z87.891 Personal history of nicotine dependence
CPT/HCPCS: J0171; J3490; J7030

== ENCOUNTER 2019-05-12 06:03 | Day surgery (SDC) | payer MEDICARE, BC ==
[2019-05-12] MEDS ORDERED: PROPOFOL 10 MG/ML VIAL IV ONE (06:04)
[2019-05-12] MEDS ORDERED: LIDOCAINE 2% MDV (20MG/ML) 20ML VIAL IV ONE (06:04)
[2019-05-12] MEDS ORDERED: 0.9 % SODIUM CHLORIDE 1000ML 500 ML IV ONE (06:50)
[2019-05-12] MEDS ORDERED: EPINEPHRINE 1 MG/ML AMPUL IO ONE (07:52)
[2019-05-12] MEDS ORDERED: BRIMONIDINE TARTRATE 0.2% OPTHALMIC DROPS OP ONE (07:52)
[2019-05-12] MEDS ORDERED: LIDOCAINE 2% MDV (20MG/ML) 20ML VIAL INJ ONE (07:52)
[2019-05-12] MEDS ORDERED: NEOM/BACI/POLY/HC 3.5 GM OPTH OINT OPTH ONE (07:52)
[2019-05-12] MEDS ORDERED: TETRACAINE HCL 0.5% OPTH 2ML SOLU OPTH ONE (07:52)
[2019-05-12] MEDS ORDERED: TIMOLOL MALEATE 0.5% 5ML BTL OPTH ONE (07:53)
--- NOTE | 2019-05-16 08:40 | Operative Note ---
DATE OF SURGERY: 05/12/2019 PREOPERATIVE DIAGNOSIS: Nuclear sclerotic cataract, right eye. POSTOPERATIVE DIAGNOSIS: Nuclear sclerotic cataract, right eye. OPERATION: Phacoemulsification of cataractous lens with implantation of intraocular lens, temporal approach. LENS IMPLANT USED: Jakob and Jakob Model PCB00. COMPLICATIONS: None. PROCEDURE IN DETAIL: Following a retrobulbar and facial block, the patient was prepped and draped in the usual fashion for eye surgery. A lid speculum was placed in the right eye after which a 2.4 mm tunnel wound was placed at the temporal limbus and dissected into clear cornea. A paracentesis was placed at 2 clock hours to the left and right of the initial incision and the chamber deepened with Viscoelastic. The keratome was then used to enter the anterior chamber after which the right capsulorrhexis was accomplished without difficulty using a bent needle and Utrata forceps. Hydrodissection and hydrodelineation of the lens was performed after which the nucleus of the lens was removed using the Phaco handpiece in the divide and conquer technique. The residual cortical material was irrigated and aspirated from the eye, after which the bag and chamber were reexamined. The bag was re-inflated with Viscoelastic and the intraocular lens injected into the capsular bag where it centered well. The Viscoelastic was then copiously irrigated and aspirated from the eye after which the temporal tunnel wound and paracentesis were hydrated and the wounds were examined. They were noted to be watertight. The lid speculum was removed from the eye and the eye patched and shielded. The patient was transferred to recovery in satisfactory condition. SHANTHI
== END 2019-05-12 08:35 | disposition home or self-care (01) ==
LOC: SUR 06:03
PROVIDERS: ATTEND Ophthalmology
DX: H25.11 Age-related nuclear cataract, right eye (principal); I10 Essential (primary) hypertension; I48.91 Unspecified atrial fibrillation; Z79.01 Long term (current) use of anticoagulants; N28.9 Disorder of kidney and ureter, unspecified; R05 Cough
CPT/HCPCS: J0171; J7030